=== PATIENT | male | born 1995 | race African-American/Black ===

== ENCOUNTER 2020-07-12 10:17 | Emergency (ER) | payer MEDICAID ==
[~2020-07-12] VITALS: Ht 188 cm; Wt 114.8 kg
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
[2020-07-12] MEDS ORDERED: IBUPROFEN 600 MG TABLET ONE (10:58)
[2020-07-12] MEDS: IBUPROFEN 600 MG TABLET PO ONE (11:05)
[2020-07-12 11:22] VITALS: BP 145/81
--- NOTE | 2020-07-12 11:22 | NUR ---
Patient discharged to home in stable condition. Written and verbal after care instructions given. Patient verbalizes understanding of instruction.
== END 2020-07-12 11:22 | disposition home or self-care (01) ==
LOC: ER 10:20
DX: S20.212A Contusion of left front wall of thorax, initial encounter (principal); F41.9 Anxiety disorder, unspecified; F32.9 Major depressive disorder, single episode, unspecified; F12.90 Cannabis use, unspecified, uncomplicated; V49.59XA Passenger injured in collision with other motor vehicles in traffic accident, initial encounter; Y93.89 Activity, other specified; Y92.413 State road as the place of occurrence of the external cause; Y99.8 Other external cause status
CPT/HCPCS: 71045-TC